=== PATIENT | female | born 1960 | race Two or more races ===

== ENCOUNTER 2021-02-25 08:23 | Outpatient (CLI) | payer OTHER | END 2021-02-25 08:31 | disposition home or self-care (01) | LOC: MRI 08:23 | PROVIDERS: ATTEND General Practice | DX: G93.89 Other specified disorders of brain (principal); I69.959 Hemiplegia and hemiparesis following unspecified cerebrovascular disease affecting unspecified side; Z13.89 Encounter for screening for other disorder; G44.89 Other headache syndrome | CPT/HCPCS: 70553 ==